=== PATIENT | male | born 1930 | race Caucasian/White ===

== ENCOUNTER → 2020-01-25 | Outpatient (CLI) | payer OTHER ==
[~2020-01-25] MED LIST: ADULT LOW DOSE81 MG PO; BAYER CHEWABLE81 MG PO; COUMADIN 5 MG TA5 M1 PO; COZAAR 50 MG TA50 M2 PO; LEVAQUIN 500 M500 M2 PO; NORCO 5-325 TA1 EACH PO; POTASSIUM CITR10 ME1 PO; QUINAPRIL 20 MG20 MG PO; QUINU10 PD PO; TYLENOL325 MG PO; ZOCOR40 MG PO
== END ==
LOC: SJCVC 12:00
PROVIDERS: ATTEND Internal Medicine
DX: R94.31 Abnormal electrocardiogram [ECG] [EKG] (principal); I25.810 Atherosclerosis of coronary artery bypass graft(s) without angina pectoris; I44.2 Atrioventricular block, complete; E78.5 Hyperlipidemia, unspecified; I65.23 Occlusion and stenosis of bilateral carotid arteries; I10 Essential (primary) hypertension; Z95.1 Presence of aortocoronary bypass graft; Z87.891 Personal history of nicotine dependence; Z86.718 Personal history of other venous thrombosis and embolism; Z95.0 Presence of cardiac pacemaker

== ENCOUNTER → 2020-07-31 | Outpatient (CLI) | payer OTHER | LOC: SJCVC 11:27 | PROVIDERS: ATTEND Internal Medicine | DX: I25.10 Atherosclerotic heart disease of native coronary artery without angina pectoris (principal); R94.31 Abnormal electrocardiogram [ECG] [EKG]; I49.1 Atrial premature depolarization; I65.23 Occlusion and stenosis of bilateral carotid arteries; I44.2 Atrioventricular block, complete; E78.5 Hyperlipidemia, unspecified; Z95.0 Presence of cardiac pacemaker; Z95.1 Presence of aortocoronary bypass graft; Z98.890 Other specified postprocedural states; Z79.82 Long term (current) use of aspirin; Z79.899 Other long term (current) drug therapy; Z86.711 Personal history of pulmonary embolism; Z86.718 Personal history of other venous thrombosis and embolism; Z87.891 Personal history of nicotine dependence; Z82.49 Family history of ischemic heart disease and other diseases of the circulatory system ==